=== PATIENT | female | born 2005 | race Two or more races ===

== ENCOUNTER → 2024-08-04 | Outpatient (CLI) | payer BC, SELFPAY ==
--- NOTE | 2024-08-04 15:39 | XR_ITS ---
Examination: PA lateral chest 2 views Technique: Upright PA lateral chest 2 views Exam date and time: August 04, 2024 1622 hrs. Indications: Coughing beginning one month ago. Findings: Normal heart size. Lungs are clear. Osseous structures are intact Impression: No active disease
== END | disposition home or self-care (01) ==
PROVIDERS: PCP Obstetrics & Gynecology; Referring Provider Obstetrics & Gynecology; Visit Provider Obstetrics & Gynecology
DX: R07.9 Chest pain, unspecified (principal)
CPT/HCPCS: 71046

== ENCOUNTER → 2025-05-21 | Outpatient (CLI) | payer BC, SELFPAY ==
--- NOTE | 2025-05-21 09:46 | XR_ITS ---
EXAMINATION: Lumbar spine 3 views TECHNIQUE: AP lateral: Lateral lower lumbar spine 3 views Date and time: May 21, 2025, 1029 hours INDICATIONS: Low back pain for months radiating down the right leg FINDINGS: Adequate alignment lumbar vertebral bodies No lumbar fracture Mild disc narrowing L5-S1 No spondylolisthesis IMPRESSION: Mild disc narrowing L5-S1
[2025-05-21 12:11] LABS: Free T3 3.2 pg/mL (2.3-4.2); Free T4 (Free Thyroxine) 1.68 ng/dL (0.89-1.76); Thyroid Stimulating Hormone 1.32 uIU/mL (0.55-4.78)
[2025-05-21 12:14] LABS: T4 (Thyroxine) 9.8 mcg/dL (4.5-10.9)
== END | disposition home or self-care (01) ==
PROVIDERS: PCP Specialist; Referring Provider Obstetrics & Gynecology; Visit Provider Radiology Diagnostic Radiology
DX: M48.07 Spinal stenosis, lumbosacral region (principal); E05.90 Thyrotoxicosis, unspecified without thyrotoxic crisis or storm
CPT/HCPCS: 36415; 72100; 84436; 84439; 84443; 84481